=== PATIENT | female | born 1975 ===

== ENCOUNTER 2023-08-13 11:57 | Outpatient (AMB) | payer OTHER, SELFPAY ==
--- NOTE | 2023-08-13 11:59 | A.OFFVIS_ITS ---
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 She reports that bother her upper back and lower back are painful. She was previously was seen with a spine doctor (Dr. Amaya) who did a Lumbar fusion and cage, as well as a disectomy of L4 L5 and S1. He also wanted to do another back surgery at the [facility] for degenerative disc disease but this was not done. Allergies acetaminophen [From Tylenol] Adverse Reaction (Verified 08/13/23 12:07) Rash nuts Adverse Reaction (Uncoded 08/13/23 12:07) Swelling Medication List - Last Reconciled 08/13/23 by Ursula Spain MD cetirizine 10 mg PO DAILY gabapentin 300 mg PO TID ibuprofen 600 mg PO TID lidocaine 5% 1 patch topical DAILY oxycodone mg PO HPI HPI Comments History of Present Illness Details History of depression, fibromyalgia, lumbar fusion/surgery (7 surgeries, last 01/[address] Amaya). Also has headache and neck pain. Chronic pain since 2013 that started after headaches. History of breast reduction that helped the headaches. Had stomach tuck surgery which also helped with headaches. Was doing [employer], when she started having back pain. Had gall bladder surgery and also diagnosed colitis. First lumbar surgery 2018 Dr. Bright. Fusion/cage L4,5,6 and L3,4 cage 2020. Patient had seen PCP office for neck pain. She has been told that she has issues C3,4,5. No past surgery for cervical. Hands go numb. Get headaches, fatigue, nausea, can't concentrate. Lower back and left leg pain. She was referred to us for medication management. Dr. Cruz has previously prescribed oxycodone with tylenol. It gaver her a rash. It was not working. They were willing to go on pain contract with them. She more recently prescribed with plain oxycodone. She thought she was seeing pain medication management today. We agreed to concentrate on neck pain. Pain in posteriord mid neck with tightness laterally. Worse with moving neck. Radiates to both hands. Hand numbness constant. No EMG yet. Drops things. Can't open things. Last MRI most likely 2020 at [facility]. Patient says she does not want anymore surgery. Sepsis after spinal cord stimulator was placed, 10/2022, removed 11/2022. Never had PT for neck/shoulder pain. [facility] Medical History (Updated 08/13/23 @ 12:25 by Ursula Spain MD) Myofascial pain Chronic neck pain Surgical History (Updated 08/13/23 @ 12:04 by Caro Camarillo CMA) H/O lumbosacral spine surgery Review of Systems Const All systems reviewed & are unremarkable except as noted in HPI and below Physical Exam Vital Signs: BMI result Body Mass Index 26.6 Constitutional: Patient appears to be in no acute distress, well nourished and well developed. Patient was appropriately conversant and oriented. Good historian. MSK: Inspection reveals appropriate head and neck positioning. Tender points /trigger points on bilateral upper trapezius. Cervical ROM was full. Spurling's sign negative. Bilateral shoulder, elbow and wrist ROM WNL. No ligamentous laxity or crepitance. No increased effusion. No specific abnormalities or instability found on inspection and palpation of the spine and extremities. Bilateral carpal compression positive. Strength is 5/5 in all muscle groups tested. No increased tone noted. Neurological: Neurologic examination of the upper and lower extremities was nonfocal with intact sensation, muscle stretch reflexes and without focal motor deficits. Mason's negative bilaterally. Gait is non-antalgic without loss of balance. Results Reviewed Results Reviewed: I reviewed records from the following: [facility] Assessment & Plan Assessment & Plan (1) Chronic neck pain: Code(s): M54.2 - Cervicalgia; G89.29 - Other chronic pain (2) Myofascial pain: Code(s): M79.18 - Myalgia, other site (3) Carpal tunnel syndrome on both sides: Code(s): G56.03 - Carpal tunnel syndrome, bilateral upper limbs Orders: Orders NE electromyogram (EMG) Today G56.03 - Carpal tunnel syndrome, bilateral upper limbs NE nerve conduction velocity Today G56.03 - Carpal tunnel syndrome, bilateral upper limbs Coding Level of Care Code New Pt Level 4 (59284) Diagnoses Chronic neck pain M54.2; G89.29 Myofascial pain M79.18 Carpal tunnel syndrome on both sides G56.03
[2023-08-13 12:06] VITALS: BMI 26.6
== END 2023-08-13 12:45 | disposition home or self-care (01) ==
PROVIDERS: Visit Provider Physical Medicine & Rehabilitation
DX: M54.2 Cervicalgia (principal); G89.29 Other chronic pain; M79.18 Myalgia, other site; G56.03 Carpal tunnel syndrome, bilateral upper limbs
CPT/HCPCS: 99204

== ENCOUNTER → 2023-08-13 11:57 | Outpatient (BNVA) | payer OTHER, SELFPAY | PROVIDERS: Visit Provider Physical Medicine & Rehabilitation ==

== ENCOUNTER 2023-09-05 13:34 | Outpatient (REF) | payer OTHER, SELFPAY ==
--- NOTE | 2023-09-05 13:37 | EMG_ITS ---
Chief complaint: Bilateral hand pain and numbness, chronic neck pain Reason for referral: Evaluate for evaluate for Carpal Tunnel Syndrome Procedure done: Bilateral upper extremities NCS/EMG Precautions and/or limitations: None The limb temperature was monitored continuously and remained between 32-36 degrees C during the performance of the NCS. Nerve Conduction Studies Anti Sensory Summary Table ?Stim Site NR Onset (ms) Norm Onset (ms) Peak (ms) Norm Peak (ms) O-P Amp (?V) Norm O-P Amp Site1 Site2 Delta-0 (ms) Dist (cm) Shakeel (m/s) Norm Shakeel (m/s) Left Median Anti Sensory (2nd Digit) Wrist ? 2.4 3.2 <3.6 21.1 >10 Wrist 2nd Digit 2.4 14.0 58 Right Median Anti Sensory (2nd Digit) Wrist ? 2.7 3.5 <3.6 12.5 >10 Wrist 2nd Digit 2.7 14.0 52 Right Radial Anti Sensory (Thumb) Forearm ? 1.8 2.1 <3.1 36.1 Forearm Thumb 1.8 0.0 Left Ulnar Anti Sensory (5th Digit) Wrist ? 2.9 3.4 <3.7 29.1 >15.0 Wrist 5th Digit 2.9 14.0 48 Right Ulnar Anti Sensory (5th Digit) Wrist ? 2.8 3.6 <3.7 17.8 >15.0 Wrist 5th Digit 2.8 14.0 50 Motor Summary Table ?Stim Site NR Onset (ms) Norm Onset (ms) O-P Amp (mV) Norm O-P Amp iAmp (mV) Amp (1st) (%) Site1 Site2 Delta-0 (ms) Dist (cm) Shakeel (m/s) Norm Shakeel (m/s) Left Median Motor (Abd Poll Brev) Wrist ? 3.8 <3.9 11.4 >4.5 14.1 100.0 Elbow Wrist 3.1 16.5 53 >45 Elbow ? 6.9 12.4 15.3 108.8 Right Median Motor (Abd Poll Brev) Wrist ? 3.2 <3.9 10.3 >4.5 12.6 100.0 Elbow Wrist 3.3 16.5 50 >45 Elbow ? 6.5 11.0 13.5 106.8 Left Ulnar Motor (Abd Dig Minimi) Wrist ? 3.0 <3.0 8.6 >5 12.5 100.0 B Elbow Wrist 2.3 15.0 65 >45 B Elbow ? 5.3 8.3 12.6 96.5 A Elbow B Elbow 1.7 10.0 59 >45 A Elbow ? 7.0 6.6 10.4 76.7 Right Ulnar Motor (Abd Dig Minimi) Wrist ? 2.5 <3.0 8.5 >5 12.0 100.0 B Elbow Wrist 2.9 16.5 57 >45 B Elbow ? 5.4 6.8 10.5 80.0 A Elbow B Elbow 1.6 10.0 63 >45 A Elbow ? 7.0 5.9 9.1 69.4 EMG ?Side Muscle Nerve Root Ins Act Fibs Psw Amp Dur Poly Recrt Int Pat Comment Right 1stDorInt Ulnar C8-T1 Nml Nml Nml Nml Nml 0 Nml Complete Right FlexCarRad Median C6-7 Nml Nml Nml Nml Nml 0 Nml Complete Right Biceps Musculocut C5-6 Nml Nml Nml Nml Nml 0 Nml Complete Right Triceps Radial C6-7-8 Nml Nml Nml Nml Nml 0 Nml Complete Right Deltoid Axillary C5-6 Nml Nml Nml Nml Nml 0 Nml Complete Left 1stDorInt Ulnar C8-T1 Nml Nml Nml Nml Nml 0 Nml Complete Left FlexCarRad Median C6-7 Nml Nml Nml Nml Nml 0 Nml Complete Left Biceps Musculocut C5-6 Nml Nml Nml Nml Nml 0 Nml Complete Left Triceps Radial C6-7-8 Nml Nml Nml Nml Nml 0 Nml Complete Left Deltoid Axillary C5-6 Nml Nml Nml Nml Nml 0 Nml Complete FINDINGS: All motor and sensory nerves tested showed normal latencies, amplitudes and conduction velocities. Concentric needle EMG was performed in selected muscles of the bilateral upper extremities. Study did not reveal signs of electric abnormalities as shown in the table below. IMPRESSION: 1. This is a normal study. 2. There is no electrodiagnostic evidence for median neuropathy, ulnar neuropathy, brachial plexopathy, or cervical radiculopathy. Thank you for your kind referral. Ursula Spain MD, FERNANDO Board Certified, [place] [employer] (ABPMR) Board Certified, [place] [employer] Electro[employer]ostic [employer] (ABEM) CODIN [id number] x2 MTDD
== END 2023-09-05 13:35 | disposition home or self-care (01) ==
LOC: HO.NEURO 13:34
PROVIDERS: Visit Provider Physical Medicine & Rehabilitation
DX: G56.03 Carpal tunnel syndrome, bilateral upper limbs (principal)
CPT/HCPCS: 95886; 95911

== ENCOUNTER → 2023-09-05 13:37 | Outpatient (BNV) | payer OTHER, SELFPAY | PROVIDERS: Visit Provider Physical Medicine & Rehabilitation | DX: M79.642 Pain in left hand (principal); M79.641 Pain in right hand | CPT/HCPCS: 95886; 95911 ==